=== PATIENT | male | born 1985 | race Caucasian/White ===

== ENCOUNTER 2022-11-29 02:51 | Emergency (ER) | payer MEDICAID, OTHER ==
[~2022-11-29] VITALS: Ht 180.3 cm; Wt 91.0 kg
[~2022-11-29 02:51] MED LIST: ALBUTEROL
[2022-11-29] MEDS ORDERED: IBUPROFEN 600MG TABLET PO ONE (04:00)
[2022-11-29 04:23] LABS: BASOPHILS % 0.4 % (0.0-2.0); EOSINOPHILS % 0.2 % (0.0-5.0); HEMATOCRIT. 44.5 % (42.0-52.0); HEMOGLOBIN. 15.4 g/dL (14.0-18.0); MEAN CORPUSCULAR HEMOGLOBIN 30.8 pg (28.0-32.0); MEAN CORPUSCULAR VOLUME 88.6 fL (80.0-94.0); MEAN PLATELET VOLUME 8.6 fl (7.4-10.4); MONOCYTES % 4.6 % (2.0-8.0); NEUTROPHILS % 76.8 % (40.0-76.0); PLATELET 259 x1000/uL (130-400); RED BLOOD CELL COUNT 5.02 mill/uL (4.7-6.1); RED CELL DISTRIBUTION WIDTH 13.1 % (11.6-14.6)
[2022-11-29 04:33] LABS: CHLORIDE 108 mEq/L (98-107)
[2022-11-29 04:39] VITALS: BP 121/79
[2022-11-29] MEDS ORDERED: NAP5EC MT (05:28)
== END 2022-11-29 05:45 | disposition home or self-care (01) ==
LOC: ER 02:51
DX: R07.89 Other chest pain (principal)
CPT/HCPCS: 36415; 71045; 80053; 84484; 85025; 85379; 93005; 99285